=== PATIENT | female | born 1940 | race Two or more races ===

== ENCOUNTER 2024-08-11 08:34 | Outpatient (CLI) | payer OTHER ==
[~2024-08-11 08:34] MED LIST: EC-NAPROSYN500 MG PO; ZOCOR5 MG PO
== END 2024-08-11 08:35 | disposition home or self-care (01) ==
LOC: NUCLEAR 08:34
PROVIDERS: ATTEND Psychiatry & Neurology Clinical Neurophysiology
DX: G30.1 Alzheimer's disease with late onset (principal)
CPT/HCPCS: 78803; A9557